=== PATIENT | female | born 1990 | race Caucasian/White ===

== ENCOUNTER 2017-04-18 18:53 | Emergency (ER) | payer SELFPAY ==
[~2017-04-18] VITALS: Ht 160 cm; Wt 95.3 kg
[~2017-04-18 18:53] MED LIST: BIRTH CONTROL PILL; HYDR-971 PO; LANS30CA66 PO; ONDA4TAB7 PO; implanon
[2017-04-18 19:25] VITALS: BP 136/78
[2017-04-18] MEDS ORDERED: TRAM50TA PO (19:53)
[2017-04-18] MEDS ORDERED: IBUP-1060 PO (19:53)
[2017-04-18] MEDS ORDERED: CYCL10TA2 PO (19:53)
--- NOTE | 2017-04-18 19:53 | PHYS DOC ---
Past Medical History Past Medical History: Other Additional Past Medical Histor: hypoglycemia, gallbladder contstriction, gastroporesis Past Surgical History: No Surgical History Alcohol Use: Rarely Drug Use: None Adult General Chief Complaint Chief Complaint: LOWER BACK PAIN OR INJURY HPI HPI Patient is a 26 year old female that presents to the emergency department with complaints of right low back pain. She states 2 days ago she was picking up and swinging her 3-year-old child when she felt a pop in the low back. She's had pain in the lumbar region since that time. No loss of bowel or bladder control. No loss of function of lower extremity. No numbness of lower extremity. Review of Systems Review of Systems Constitutional: Denies fever or chills [] Eyes: Denies change in visual acuity, redness, or eye pain [] HENT: Denies nasal congestion or sore throat [] Respiratory: Denies cough or shortness of breath [] Cardiovascular: No additional information not addressed in HPI [] GI: Denies abdominal pain, nausea, vomiting, bloody stools or diarrhea [] : Denies dysuria or hematuria [] Musculoskeletal: Pain Integument: Denies rash or skin lesions [] Neurologic: Denies headache, focal weakness or sensory changes [] Endocrine: Denies polyuria or polydipsia [] Allergies Allergies Allergies Coded Allergies Type Severity Reaction Last Updated Verified morphine Adverse Reaction Intermediate heart palpitations, nausea 04/18/15 Yes Physical Exam Physical Exam Constitutional: Well developed, well nourished, no acute distress, non-toxic appearance. [] HENT: Normocephalic, atraumatic, bilateral external ears normal, oropharynx moist, no oral exudates, nose normal. [] Eyes: PERRLA, EOMI, conjunctiva normal, no discharge. [] Neck: Normal range of motion, no tenderness, supple, no stridor. [] Cardiovascular:Heart rate regular rhythm, no murmur [] Lungs & Thorax: Bilateral breath sounds clear to auscultation [] Abdomen: Bowel sounds normal, soft, no tenderness, no masses, no pulsatile masses. [] Skin: Warm, dry, no erythema, no rash. [] Back: Mild tenderness in the right lumbar region without midline or paraspinous tenderness. Negative straight raise leg test. No saddle anesthesia. Muscle strength is 5 over 5. DTRs 2 over 4.] Extremities: No tenderness, no cyanosis, no clubbing, ROM intact, no edema. [] Neurologic: Alert and oriented X 3, normal motor function, normal sensory function, no focal deficits noted. [] Psychologic: Affect normal, judgement normal, mood normal. [] Current Patient Data Vital Signs Vital Signs Date Time Temp Pulse Resp B/P (MAP) Pulse Ox O2 Delivery O2 Flow Rate FiO2 04/18/17 19:25 97.9 78 16 96 Room Air 97.9 EKG EKG [] Radiology/Procedures Radiology/Procedures [] Course & Med Decision Making Course & Med Decision Making Pertinent Labs and Imaging studies reviewed. (See chart for details) [] Dragon Disclaimer Dragon Disclaimer This electronic medical record was generated, in whole or in part, using a voice recognition dictation system. Departure Departure Impression: Primary Impression: Low back pain Disposition: HOME, SELF-CARE Condition: STABLE Referrals: NO PCP (PCP) [facility] [place] Patient Instructions: Low Back Strain with [facility] Tramadol Hcl (TRAMADOL HCL) 50 Mg Tablet 50 MG PO Q6H Y for PAIN, #16 TAB Prov: FRED DANIEL APRN 04/18/17 Ibuprofen (IBUPROFEN) 800 Mg Tablet 800 MG PO PRN Q6HRS Y for INFLAMMATION, #20 TAB Prov: FRED DANIEL APRN 04/18/17 Cyclobenzaprine Hcl (CYCLOBENZAPRINE HCL) 10 Mg Tablet 10 MG PO TID Y for MUSCLE PAIN, #30 TAB Prov: FRED DANIEL APRN 04/18/17 Problem Qualifiers Primary Impression: Low back pain Chronicity: acute Back pain laterality: right Sciatica presence: without sciatica Qualified Codes: M54.5 - Low back pain FRED DANIEL APRN Apr 18, 2017 19:53
[2017-04-18] MEDS ORDERED: KETOROLAC TROMETHAMINE 60 MG/2 ML INJ. IM ONE (20:00)
== END 2017-04-18 20:30 | disposition home or self-care (01) ==
LOC: ER 18:53
DX: M54.5 Low back pain (principal); Z88.5 Allergy status to narcotic agent
CPT/HCPCS: 96372; 99283; J1885

== ENCOUNTER 2020-12-06 10:57 | Emergency (ER) | payer OTHER ==
[~2020-12-06] VITALS: Ht 160 cm; Wt 100.0 kg
[~2020-12-06 10:57] MED LIST changes: +CYCL10TA2 PO; +HYDR-3164 PO; -HYDR-971 PO; +IBUP-1060 PO; +TRAM50TA PO
[2020-12-06 14:02] LABS: BASO % 1 % (0-3); EOS % 0 % (0-3); HEMATOCRIT 37.7 % (36.0-47.0); HEMOGLOBIN 12.9 g/dL (12.0-15.5); LYMPH # 0.8 x10^3/uL (1.0-4.8); LYMPH % 30 % (24-48); MEAN CORPUSCULAR HEMOGLOBIN 29 pg (25-35); MEAN CORPUSCULAR HGB CONC 34 g/dL (31-37); MEAN CORPUSCULAR VOLUME 85 fL (79-100); MONO # 0.3 x10^3/uL (0.0-1.1); MONO % 10 % (0-9); NEUT # 1.5 x10^3/uL (1.8-7.7); NEUT % 59 % (31-73); PLATELET COUNT 187 x10^3/uL (140-400); RED BLOOD COUNT 4.43 x10^6/uL (3.50-5.40); WHITE BLOOD COUNT 2.6 x10^3/uL (4.0-11.0)
--- NOTE | 2020-12-06 14:08 | ED.ADGEN ---
Past Medical History Past Medical History: Other Additional Past Medical Histor: hypoglycemia, gallbladder contstriction, gastroparesis Past Surgical History: No Surgical History Smoking Status: Never Smoker Alcohol Use: Rarely Drug Use: None General Adult EDM: Chief Complaint: SHORTNESS OF BREATH HPI: HPI: Patient is a 30 year old female who presents emergency department with complaints of intractable nausea and vomiting for the last 3 days. Patient reports that she developed COVID-19 symptoms 8 days ago. She was tested last week and was informed of a positive result last Saturday. Patient states she is unable to tolerate any food. She has been able to keep down some liquids but reports that she has vomited greater than 10 times in the last 24 hours. Patient reports that when she vomits she has diarrhea at the same time. Patient denies any blood in her vomit or her stools. Patient states she has been having intermittent fevers and chills. She also complains of generalized body aches, fatigue, headache, sore throat, chills, shortness of breath, dry cough, and nasal congestion. Patient currently complains of epigastric pain that she describes as a burning sensation and currently rates as a 6 out of 10 on the pain scale, she denies any alleviating factors, the pain is worse with palpation and eating. Review of Systems: Review of Systems: Complete ROS is negative unless otherwise noted in HPI. Current Medications: Current Medications Medications (Trade) Dose Ordered Sig/[facility] Start Time Stop Time Status Last Admin Dose Admin Dexamethasone Sodium Phosphate (Decadron) 10 mg 1X ONCE 12/06/20 14:15 12/06/20 14:16 DC 12/06/20 14:11 10 MG Ondansetron HCl (Zofran) 4 mg 1X ONCE 12/06/20 14:15 12/06/20 14:16 DC 12/06/20 14:12 4 MG Potassium Chloride (Klor-Con) 40 meq 1X ONCE 12/06/20 15:00 12/06/20 15:01 DC 12/06/20 15:39 40 MEQ Sodium Chloride 1,000 ml @ 1,000 mls/hr 1X ONCE 12/06/20 14:15 12/06/20 15:14 DC 12/06/20 14:10 1,000 MLS/HR Allergies: Allergies: Allergies Coded Allergies Type Severity Reaction Last Updated Verified morphine Adverse Reaction Intermediate heart palpitations, nausea 04/18/15 Yes Physical Exam: PE: See Above Constitutional: Well developed, well nourished, no acute distress, ill appearance HENT: Normocephalic, atraumatic, bilateral external ears normal, nose normal. [] Eyes: PERRLA, EOMI, conjunctiva normal, no discharge. [] Neck: Normal range of motion, no stridor. [] Cardiovascular:Heart rate regular rhythm Lungs & Thorax: Respirations even and unlabored, no retractions, no respiratory distress Abdomen: soft, epigastric TTP, no rebound tenderness, no guarding, no palpable masses, no pulsatile mass Skin: Warm, dry, no erythema, no rash. [] Extremities: No cyanosis, ROM intact, no edema. [] Neurologic: Alert and oriented X 3, normal motor, normal sensory, no focal deficits noted. [] Psychologic: Affect normal, judgement normal, mood normal. [] Current Patient Data: Labs: Laboratory Tests Test 12/06/20 13:49 White Blood Count 2.6 x10^3/uL (4.0-11.0) L Red Blood Count 4.43 x10^6/uL (3.50-5.40) Hemoglobin 12.9 g/dL (12.0-15.5) Hematocrit 37.7 % (36.0-47.0) Mean Corpuscular Volume 85 fL (79-100) Mean Corpuscular Hemoglobin 29 pg (25-35) Mean Corpuscular Hemoglobin Concent 34 g/dL (31-37) Red Cell Distribution Width 13.0 % (11.5-14.5) Platelet Count 187 x10^3/uL (140-400) Neutrophils (%) (Auto) 59 % (31-73) Lymphocytes (%) (Auto) 30 % (24-48) Monocytes (%) (Auto) 10 % (0-9) H Eosinophils (%) (Auto) 0 % (0-3) Basophils (%) (Auto) 1 % (0-3) Neutrophils # (Auto) 1.5 x10^3/uL (1.8-7.7) L Lymphocytes # (Auto) 0.8 x10^3/uL (1.0-4.8) L Monocytes # (Auto) 0.3 x10^3/uL (0.0-1.1) Eosinophils # (Auto) 0.0 x10^3/uL (0.0-0.7) Basophils # (Auto) 0.0 x10^3/uL (0.0-0.2) Sodium Level 142 mmol/L (136-145) Potassium Level 3.2 mmol/L (3.5-5.1) L Chloride Level 104 mmol/L (98-107) Carbon Dioxide Level 29 mmol/L (21-32) Anion Gap 9 (6-14) Blood Urea Nitrogen 7 mg/dL (7-20) Creatinine 0.9 mg/dL (0.6-1.0) Estimated GFR (Cockcroft-Gault) 73.5 BUN/Creatinine Ratio 8 (6-20) Glucose Level 102 mg/dL (70-99) H Calcium Level 7.8 mg/dL (8.5-10.1) L Total Bilirubin 0.2 mg/dL (0.2-1.0) Aspartate Amino Transferase (AST) 41 U/L (15-37) H Alanine Aminotransferase (ALT) 46 U/L (14-59) Alkaline Phosphatase 42 U/L (46-116) L Total Protein 6.7 g/dL (6.4-8.2) Albumin 3.0 g/dL (3.4-5.0) L Albumin/Globulin Ratio 0.8 (1.0-1.7) L Laboratory Tests 12/06/20 13:49 Laboratory Tests 12/06/20 13:49 Vital Signs: Vital Signs Date Time Temp Pulse Resp B/P (MAP) Pulse Ox O2 Delivery O2 Flow Rate FiO2 12/06/20 13:34 98.0 91 26 102/58 (73) 95 Room Air 98.0 EKG: EK-sinus rhythm, rate 88, leftward axis, no STEMI, read by Dr. Peralta [] Heart Score: C/O Chest Pain: No Risk Scores: Score 0 - 3: 2.5% MACE over next 6 weeks - Discharge Home Score 4 - 6: 20.3% MACE over next 6 weeks - Admit for Clinical Observation Score 7 - 10: 72.7% MACE over next 6 weeks - Early Invasive Strategies Radiology/Procedures: Radiology/Procedures: PROCEDURE: CHEST AP ONLY Exam Date: 12/06/2020 1:32 PM XR CHEST 1V Indication: Reason: COVID+ worsening SOA / Spl. Instructions: / History: FINDINGS/ IMPRESSION: Lung volumes are low. Mild left basilar subsegmental atelectasis and or infiltrates are noted. The cardiac silhouette and pulmonary vasculature are within normal limits. There is no appreciable pleural effusion or pneumothorax. Electronically signed by: Dequan Connolly MD (12/06/2020 2:05 PM) [id number] [] Course & Med Decision Making: Course & Med Decision Making Pertinent Labs and Imaging studies reviewed. (See chart for details) 30-year-old female presents emergency department on day 8 of COVID-19 infection. Patient reports intractable, nausea, vomiting, diarrhea, epigastric pain, cough, shortness of breath, and body aches. Work-up included labs, EKG, and chest x-ray. EKG revealed no acute findings. CBC revealed leukopenia with 2.6 white blood cell count; CMP revealed a potassium of 3.2, glucose of 102, calcium of 7.8, AST of 41, alk phos of 42, otherwise unremarkable. The patient was given 40 mEq of p.o. potassium in the emergency department, calcium was 7.8 however albumin was also low at 3.0 corrected calcium is 8.6; CXR revealed mild left basilar infiltrate. Prescriptions written for Z-pack, medrol doespak, and zofran. Pt encouraged to return to the ER if sx worsen, Fever did not respond to medications, or respiratory rate increased. Pt able to tolerate PO meds, fluids, and JELLO while in the ER> PT verbalized an understanding of d/c instructions, medications, prescriptions, and return to ER precautions and was in agreement with POC COVID-19 CRITERIA: The patient was evaluated during the global COVID-19 pandemic, and that diagnosis was suspected/considered upon their initial presentation. Their evaluation, treatment and testing was consistent with current guidelines for patients who present with complaints or symptoms that may be related to COVID-19. [] Dragon Disclaimer: Dragon Disclaimer: This electronic medical record was generated, in whole or in part, using a voice recognition dictation system. Departure Departure Impression: Primary Impression: COVID-19 Additional Impressions: Pneumonia due to COVID-19 virus Gastroenteritis due to COVID-19 virus Hypokalemia Disposition: 01 HOME / SELF CARE / HOMELESS Condition: STABLE Referrals: NO PCP (PCP) Patient Instructions: Diarrhea, Anub-iz-Pkle, Diet for Diarrhea, Adult, Hypokalemia-Brief, Nausea and Vomiting, [id number], Pneumonia, Adult, [id number] Additional Instructions: Fill prescriptions and use them as directed. Recommend clear fluids for the next 24 hours. Then you may advance to bland foods such as bananas, rice, applesauce, and dry toast. Follow-up with your primary care doctor in the next 1-2 days. Return to the emergency room if your symptoms worsen or if fever develops. Please follow the following quarantine instructions: You have been diagnosed with COVID-19. It is an infection caused by a new type of coronavirus. COVID-19 will cause cold-like or mild flu symptoms in most. It can cause more severe symptoms like problems breathing in some. There is no treatment for COVID-19. The body will clear the infection over time. Self-care will help to ease discomfort. Steps to Take: Self-Care Rest as needed. Healthy habits may help you feel better. Steps include: Choose healthy foods including fruits and vegetables. Drink water throughout the day. Get plenty of sleep each night. If you smoke, try to quit. It may ease breathing. Avoid alcohol. Keep Others Healthy The virus can spread to others. Droplets are released every time you sneeze or cough. The droplets can get into the mouth, nose, or eyes of people near you and lead to infection. To lower the chances of spreading COVID-19 to others: Stay at home until your doctor has said it is safe to leave. If you tested positive this will mean staying isolated until both of the following are true: At least 7 days have passed since the start of illness. You are free of fever for at least 72 hours without the use of medicine. During this time: - Avoid public areas, events, or transportation. Do not return to work or school until your doctor has said it is safe to do so. - Call ahead if you need to go to a medical center. Let them know you may have COVID-19. It will help them guide you where to go. They may also ask you to wear a facemask when you come to the office. - If you call for emergency medical services, let them know you may have COVID- 19. While at home: - Try to avoid close contact with others. Stay about 6 feet away. - If possible, spend most of your time in a separate room from others. - Use a face mask if you will be in close contact with others such as sharing a room or vehicle. - Have someone wipe down common surfaces in the home. Use household senior research consultant every day on areas like doorknobs, counters, or sinks. - Cough or sneeze into a tissue. Throw the tissue away right after use. If a tissue is not available, cough or sneeze into your elbow. - Wash your hands often. Wash them after sneezing or coughing. Use soap and water and wash for at least 20 seconds. Alcohol based hand plate cleaner can be used if soap and water is not available. - Do not prepare food for others. Avoid sharing personal items like forks, spoons, or toothbrushes. - Avoid close contact with pets while you are sick. There is no evidence of the virus passing to pets. This is a safety step until more is known about this virus. Isolation can be frustrating. Social interaction can help. Keep in touch with friends and family through phone and tech options. You can still interact with others in your home, just keep a safe distance of about 6 feet. Follow-up: Your doctors office will check in with you to see if there are any changes in your health. You may be asked to keep track of symptoms to share with them. They will also let you know when you are clear to be in public again. Problems to Look Out For: Contact your doctor if your recovery is not going as you expect. Get emergency care if you have problems such as: - Trouble breathing - Nonstop chest pain or pressure - Changes in awareness, confusion, or problems waking - Lips or face have bluish color - Worsening of symptoms If you think you have an emergency, call for emergency medical services right away. As taken from [facility] Ondansetron (ONDANSETRON ODT) 4 Mg Tab.rapdis 1 TAB PO PRN Q6-8HRS PRN for NAUSEA/VOMITING for 4 Days, #16 TAB 0 Refills Prov: CHASE YE CONSTRUCTION EXECUTIVE 12/06/20 Methylprednisolone (MEDROL) 4 Mg Tab.ds.pk 1 PKG PO UD for 6 Days, #1 PKG 0 Refills Prov: CHASE YE APRN 12/06/20 Azithromycin (AZITHROMYCIN TABLET) 250 Mg Tablet 1 PKG PO UD for 5 Days, #6 TAB 0 Refills 2 the first day followed by 1 for days 2-5 Prov: CHASE YE APRN 12/06/20 COVID-19 Assessment: COVID-19 Patient Risks: Age 65 or older: No Sign of co-morbidity: No Exp to person + for COVID: Yes Exp to PUI: No Travel from affected area: No Lower respiratory symptoms: Yes Fever: Yes PPE Use: Full PPE with N95 mask or PAPR: Yes Attending Signature Attending Signature I have participated in the care of this patient and I have reviewed and agree with all pertinent clinical information above including history, exam, and recommendations. Problem Qualifiers CHASE YE APRN Dec 06, 2020 14:08 DANIELLE PERALTA MD Dec 06, 2020 18:29
[2020-12-06] MEDS ORDERED: DEXAMETHASONE SOD PHOS 20 MG/5 ML VIAL. IV ONE (14:15)
[2020-12-06] MEDS ORDERED: IV NORMAL SALINE 1000ML BAG 1,000 ML IV ONE (14:15)
[2020-12-06] MEDS ORDERED: ONDANSETRON PF 4 MG/2 ML VIAL. IV ONE (14:15)
[2020-12-06 14:21] LABS: CALCIUM 7.8 mg/dL (8.5-10.1); CREATININE 0.9 mg/dL (0.6-1.0); GFR 73.5; POTASSIUM 3.2 mmol/L (3.5-5.1)
[2020-12-06 14:27] LABS: ALBUMIN/GLOBULIN RATIO 0.8 (1.0-1.7); TOTAL BILIRUBIN 0.2 mg/dL (0.2-1.0); TOTAL PROTEIN 6.7 g/dL (6.4-8.2)
[2020-12-06] MEDS ORDERED: POTASSIUM CHLORIDE 20 MEQ TABLET.ER. PO ONE (15:00)
[2020-12-06] MEDS ORDERED: METH4TAB2 PO (15:27)
[2020-12-06] MEDS ORDERED: ONDA4TAB12 PO (15:27)
[2020-12-06] MEDS ORDERED: AZIT250T6 PO (15:27)
[2020-12-06 15:38] VITALS: BP 108/66
== END 2020-12-06 15:46 | disposition home or self-care (01) ==
LOC: ER 10:57
DX: U07.1 COVID-19 (principal); J18.9 Pneumonia, unspecified organism; E87.6 Hypokalemia; R11.2 Nausea with vomiting, unspecified; R10.13 Epigastric pain; R19.7 Diarrhea, unspecified; Z88.6 Allergy status to analgesic agent
CPT/HCPCS: 36415; 71045; 80053; 85025; 93005; 96361; 96374; 96375; 99285; J1100; J2405; J7030